=== PATIENT | male | born 1945 | race Caucasian/White ===

== ENCOUNTER 2017-02-14 20:12 | Emergency (ER) | payer OTHER ==
[2017-02-14 20:24] VITALS: RESP 16
[2017-02-14] MEDS ORDERED: NS 1,000 ML IV ONE (21:21)
[2017-02-14 21:45] LABS: % IMMATURE GRANULYOCYTES 0.4 % (0.0-1.1); ABSOLUTE IMMATURE GRANULOCYTES 0.05 10^3/uL (0.00-0.10); ADD DIFF? NO; ADD MORPH? NO; ADD SCAN? NO; ATYPICAL LYMPHOCYTE FLAG 10 (0-99); FRAGMENT RBC FLAG 0 (0-99); HEMATOCRIT 43.9 % (40.0-51.0); HEMOGLOBIN 14.8 g/dL (13.7-17.5); LEFT SHIFT FLG 10 (0-99); LIPEMIA HEMOLYSIS FLAG 80 (0-99); MEAN CELL HEMOGLOBIN 29.4 pg (27.9-34.1); MEAN CELL HEMOGLOBIN CONCENTR. 33.7 g/dL (32.4-36.7); MEAN CELL VOLUME 87.3 fL (81.5-99.8); MEAN PLATELET VOLUME 10.5 fL (8.7-11.7); PLATELET CLUMPS FLAG 10 (0-99); PLATELET COUNT 229 10^3/uL (150-400); RED BLOOD CELL COUNT 5.03 10^6/uL (4.40-6.38); RED CELL DISTRIBUTION WIDTH 13.3 % (11.5-15.2)
[2017-02-14 21:55] LABS: ANION GAP 13 mEq/L (8-16); CALCIUM 9.1 mg/dL (8.5-10.4); CARBON DIOXIDE 20 mEq/l (22-31); CHLORIDE 102 mEq/L (97-110); CREATININE 0.9 mg/dL (0.7-1.3); GLOMERULAR FILTRATION RATE > 60; GLUCOSE 119 mg/dL (70-100); POTASSIUM 4.1 mEq/L (3.5-5.2); SODIUM 135 mEq/L (134-144)
[2017-02-14 22:07] LABS: TROPONIN I < 0.012 ng/mL (0-0.034)
--- NOTE | 2017-02-14 22:08 | EDPHY ---
H & P Stated Complaint: from sea [place], generally sick for 1 week, fainted hit head Time Seen by Provider: 02/14/17 21:01 HPI/ROS: Chief Complaint: Syncope, head lac HPI: 71-year-old male visiting from [place] had a syncopal episode earlier this evening while preparing a cup of tea in the kitchen. Patient fell, a struck his forehead on the counter in his back of his head on the floor. He was unconscious for maybe 10 seconds. Patient awoke. Has been without complaint since. Patient states that he has been generally sick for the last week or so. He has had cough, aches and pains, some chills, no nausea vomiting or diarrhea. Has not had any chest pain or shortness of breath. No cough. He has not been drinking many fluids has been staying in bed most today. Does not have a history of syncope in the past. Current complaining of pain is in laceration above his left eye. Patient denies headache at this time. ROS: 10 point Review of Systems is negative except as noted in the HPI. PMH: None Medications: None Allergies: No known drug allergies Social History: No smoking, occasional alcohol, no recreational drug use Family History: non-contributory Physical Exam: Gen: Awake, Alert, No Distress HEENT: There is a 2 cm laceration above his left eyebrow. No bony tenderness or step-offs. No active bleeding. He has a small abrasion on the vertex of his scalp. No bony tenderness or step-offs Nose: no rhinorrhea Eyes: PERRLA, EOMI Mouth: Moist mucosa Neck: Supple, no JVD Chest: nontender, lungs clear to auscultation Heart: S1, S2 normal, no murmur Abd: Soft, non-tender, no guarding Back: no CVA tenderness, no midline tenderness Ext: no edema, non-tender Skin: no rash Neuro: CN II-XII intact, Sensation grossly intact, Strength 5/5 in bilateral upper and lower extremities - Personal History Current Tetanus Diphtheria and Acellular Pertussis (TDAP): Yes - Medical/Surgical History Hx Asthma: No Hx Chronic Respiratory Disease: No Hx Diabetes: No Hx Cardiac Disease: No Hx Renal Disease: No Hx Cirrhosis: No Hx Alcoholism: No Hx HIV/AIDS: No Hx Splenectomy or Spleen Trauma: No Other PMH: none - Social History Smoking Status: Never smoked Constitutional: Initial Vital Signs Temperature (C) 36.8 C 02/14/17 20:20 Heart Rate 95 02/14/17 20:20 Respiratory Rate 16 02/14/17 20:20 Blood Pressure 138/96 H 02/14/17 20:20 O2 Sat (%) 90 L 02/14/17 20:20 O2 Delivery Mode Room Air Allergies/Adverse Reactions: No Known Allergies Allergy (Unverified 02/14/17 20:19) Home Medications: Medication Instructions Recorded NK [No Known Home Meds] 02/14/17 Medical Decision Making - Diagnostics EKG Interpretation: ECG time 2208, sinus rhythm with a rate of 80, normal axis, normal intervals, no acute ST or T-wave changes. Impression: Normal ECG. Imaging Results: Imaging Impressions Chest X-Ray 02/14/17 21:21 Impression: Hypoventilatory chest with mild basilar atelectasis. Imaging: I viewed and interpreted images myself Procedures: Procedure: Laceration repair. Verbal consent was obtained from the patient. The 2.5 cm laceration on the left eyebrow was anesthetized in the usual fashion. The wound was irrigated, draped and explored to its base with a gloved finger. There were no deep structures involved. No tendon injury was identified. The wound was repaired with 1, 5-0 Vicryl horizontal mattress suture deep, skin was then closed with 5 , 6-0 Ethilon simple interrupted sutures. The wound repair was complex. The procedure was performed by myself. ED Course/Re-evaluation: Patient is feeling much better after IV hydration. His no longer dizzy or lightheaded. Does not dizzy when he stands up. ECG is normal. Blood work is normal. Symptoms are likely secondary to his dehydration from his general illness. He has a normal ECG and no symptoms to suggest arrhythmia at this time. Will discharge with instructions to follow with his PCP when he returns back home to [place] on Friday. - Data Points Laboratory Results: Laboratory Results 02/14/17 21:35 02/14/17 21:35 02/14/17 02/14/17 21:35 21:35 WBC 12.38 10^3/uL H 10^3/uL (3.80-9.50) RBC 5.03 10^6/uL 10^6/uL (4.40-6.38) Hgb 14.8 g/dL g/dL (13.7-17.5) Hct 43.9 % % (40.0-51.0) MCV 87.3 fL fL (81.5-99.8) MCH 29.4 pg pg (27.9-34.1) MCHC 33.7 g/dL g/dL (32.4-36.7) RDW 13.3 % % (11.5-15.2) Plt Count 229 10^3/uL 10^3/uL (150-400) MPV 10.5 fL fL (8.7-11.7) Neut % (Auto) 86.0 % H % (39.3-74.2) Lymph % (Auto) 5.9 % L % (15.0-45.0) Mcminn % (Auto) 7.5 % % (4.5-13.0) Eos % (Auto) 0.0 % L % (0.6-7.6) Baso % (Auto) 0.2 % L % (0.3-1.7) Nucleat RBC Rel Count 0.0 % % (0.0-0.2) Absolute Neuts (auto) 10.65 10^3/uL H 10^3/uL (1.70-6.50) Absolute Lymphs (auto) 0.73 10^3/uL L 10^3/uL (1.00-3.00) Absolute Monos (auto) 0.93 10^3/uL H 10^3/uL (0.30-0.80) Absolute Eos (auto) 0.00 10^3/uL L 10^3/uL (0.03-0.40) Absolute Basos (auto) 0.02 10^3/uL 10^3/uL (0.02-0.10) Absolute Nucleated RBC 0.00 10^3/uL 10^3/uL (0-0.01) Immature Gran % 0.4 % % (0.0-1.1) Immature Gran # 0.05 10^3/uL 10^3/uL (0.00-0.10) Sodium 135 mEq/L mEq/L (134-144) Potassium 4.1 mEq/L mEq/L (3.5-5.2) Chloride 102 mEq/L mEq/L (97-110) Carbon Dioxide 20 mEq/l L mEq/l (22-31) Anion Gap 13 mEq/L mEq/L (8-16) BUN 18 mg/dL mg/dL (7-23) Creatinine 0.9 mg/dL mg/dL (0.7-1.3) Estimated GFR > 60 Glucose 119 mg/dL H mg/dL (70-100) Calcium 9.1 mg/dL mg/dL (8.5-10.4) Troponin I < 0.012 ng/mL ng/mL (0-0.034) Medications Given: Discontinued Medications Sodium Chloride (Ns) 1,000 mls @ 0 mls/hr IV ONCE ONE PRN Reason: Wide Open Stop: 02/14/17 21:22 Last Admin: 02/14/17 22:11 Dose: 1,000 mls Departure - Departure Disposition: Home, Routine, Self-Care Clinical Impression: Syncope, Eyebrow laceration Condition: Good Instructions: Care For Your Stitches (ED), Syncope (ED), Facial Laceration (ED) Additional Instructions: Sutures need to be removed in 5 days. Return to the emergency depart for increasing lightheadedness, passing out, nausea, vomiting, chest pain, shortness of breath, or any other concerns. Follow up with primary care physician when you return home to [place]. Referrals: NONE *PRIMARY CARE P,. [Primary Care Provider] - As per Instructions
--- NOTE | 2017-02-14 22:11 | CPEKG ---
Heart Rate: 80 RR Interval: 750 P-R Interval: 156 QRSD Interval: 80 QT Interval: 372 QTC Interval: 430 P [place]: 41 QRS [place]: 60 T Wave [place]: 14 EKG Severity - NORMAL ECG - EKG Impression: SINUS RHYTHM Electronically Signed By: Jesus Chen 15-Feb-2017 00:11:27
[2017-02-14 23:30] VITALS: BP 129/78; PULSE 88; TEMP 98.1; O2SAT 97
== END 2017-02-14 23:30 | disposition home or self-care (01) ==
PROC: 08QPXZZ Repair Left Upper Eyelid, External Approach (ICD-10-PCS; principal; 2017-02-14)
DX: S01.112A Laceration without foreign body of left eyelid and periocular area, initial encounter (principal); R55 Syncope and collapse; W18.09XA Striking against other object with subsequent fall, initial encounter; Y92.000 Kitchen of unspecified non-institutional (private) residence as the place of occurrence of the external cause; Y99.8 Other external cause status; Y93.89 Activity, other specified